=== PATIENT | male | born 1940 | race Caucasian/White ===

== ENCOUNTER 2016-09-01 08:44 | Outpatient (CLI) | payer MEDICARE, OTHER | END 2016-09-01 08:45 | disposition home or self-care (01) | LOC: DI 08:44 | PROVIDERS: ATTEND Family Medicine | DX: R00.2 Palpitations (principal) | CPT/HCPCS: 93306 ==

== ENCOUNTER 2017-09-27 10:47 | Outpatient (CLI) | payer MEDICARE, OTHER ==
--- NOTE | 2017-09-27 11:18 | XRAY Report ---
Procedure Date: 09/27/2017 Accession Number: [id number] / [id number] Procedure: XR - Foot 3 View RT CPT Code: FULL RESULT: EXAM: Foot 3 View RT DATE: 09/27/2017 11:09 AM CLINICAL HISTORY: CONTUSION RIGHT FOOT COMPARISON: None. TECHNIQUE: 3 views. FINDINGS: There is a mildly displaced diaphyseal fracture without extension to joint space of the fifth metatarsal. Associated soft tissue swelling is identified. There is no radiopaque foreign body. IMPRESSION: Fifth metatarsal fracture. RADIA
== END 2017-09-27 10:48 | disposition home or self-care (01) ==
LOC: DI 10:47
PROVIDERS: ATTEND Family Medicine
DX: S90.31XA Contusion of right foot, initial encounter (principal); S92.351A Displaced fracture of fifth metatarsal bone, right foot, initial encounter for closed fracture

== ENCOUNTER 2017-10-24 09:22 | Outpatient (CLI) | payer MEDICARE, OTHER ==
--- NOTE | 2017-10-24 11:02 | XRAY Report ---
Procedure Date: 10/24/2017 Accession Number: [id number] / [id number] Procedure: XR - Foot 3 View RT CPT Code: FULL RESULT: EXAM: RIGHT FOOT RADIOGRAPHY EXAM DATE: 10/24/2017 09:39 AM. CLINICAL HISTORY: EVAL FRACTURE HEALING 5TH METATARSAL R FT. COMPARISON: 09/27/2017. TECHNIQUE: 3 views. FINDINGS: Bones: Oblique mid shaft right fifth metatarsal fracture stable in alignment compared to prior without evidence of periosteal reaction or new bone formation. No other fractures. Joints: Degenerative change first MTP and first IP joints. Soft Tissues: Mild lateral soft tissue swelling. IMPRESSION: Stable he aligned right fifth metatarsal fracture without appreciable healing compared with 09/27/2017. RADIA
== END 2017-10-24 09:23 | disposition home or self-care (01) ==
LOC: DI 09:22
PROVIDERS: ATTEND Podiatrist
DX: S92.351D Displaced fracture of fifth metatarsal bone, right foot, subsequent encounter for fracture with routine healing (principal)

== ENCOUNTER 2017-11-14 10:25 | Outpatient (CLI) | payer MEDICARE, OTHER ==
--- NOTE | 2017-11-14 14:05 | XRAY Report ---
Reason: FX 5TH MT R FOOT Procedure Date: 11/14/2017 Accession Number: [id number] / [id number] Procedure: XR - Foot 3 View RT CPT Code: FULL RESULT: EXAM: RIGHT FOOT RADIOGRAPHY EXAM DATE: 11/14/2017 10:34 AM. CLINICAL HISTORY: FX 5TH MT R FOOT. COMPARISON: None. TECHNIQUE: 3 views. FINDINGS: Bones: Fifth metatarsal fracture with somewhat decreasing fracture lucency. Near anatomic alignment. No definite great toe fracture is demonstrated. Joints: No subluxations. Soft Tissues: Decreased soft tissue swelling. IMPRESSION: Healing fifth metatarsal fracture RADIA
== END 2017-11-14 10:26 | disposition home or self-care (01) ==
LOC: DI 10:25
PROVIDERS: ATTEND Podiatrist
DX: S92.351D Displaced fracture of fifth metatarsal bone, right foot, subsequent encounter for fracture with routine healing (principal)

== ENCOUNTER 2017-12-07 09:47 | Outpatient (CLI) | payer MEDICARE, OTHER ==
--- NOTE | 2017-12-07 16:09 | XRAY Report ---
Reason: FRACTURE 5TH MT R Procedure Date: 12/07/2017 Accession Number: [id number] / [id number] Procedure: XR - Foot 3 View RT CPT Code: FULL RESULT: EXAM: RIGHT FOOT RADIOGRAPHY EXAM DATE: 12/07/2017 09:50 AM. CLINICAL HISTORY: Fracture 5th MT right. COMPARISON: FOOT 3 VIEW RT 11/14/2017 10:34 AM. FOOT 3 VIEW RT 09/27/2017 11:03 AM. TECHNIQUE: 3 views. FINDINGS: Redemonstration of a healing right fifth metatarsal fracture with ongoing remodeling in unchanged configuration, estimated foreshortening less than 1 cm. IMPRESSION: Ongoing remodeling of fifth metatarsal fracture. RADIA
== END 2017-12-07 09:48 | disposition home or self-care (01) ==
LOC: DI 09:47
PROVIDERS: ATTEND Podiatrist
DX: S92.351A Displaced fracture of fifth metatarsal bone, right foot, initial encounter for closed fracture (principal)